=== PATIENT | female | born 1970 | race Caucasian/White ===

== ENCOUNTER 2022-05-16 08:32 | Outpatient (CLI) | payer BC ==
[2022-05-16] MEDS ORDERED: Magnevist 469MG/ML 20 ML VIAL ONE (09:27)
== END 2022-05-16 08:33 | disposition home or self-care (01) ==
LOC: TBSIIMAG 08:32
PROVIDERS: ATTEND Family Medicine
DX: R16.0 Hepatomegaly, not elsewhere classified (principal); K76.0 Fatty (change of) liver, not elsewhere classified; D18.03 Hemangioma of intra-abdominal structures; K80.20 Calculus of gallbladder without cholecystitis without obstruction
CPT/HCPCS: 74183

== ENCOUNTER 2024-02-24 09:42 | Outpatient (CLI) | payer BC | END 2024-02-24 09:43 | disposition home or self-care (01) | LOC: SCSRAD 09:42 | PROVIDERS: ATTEND Family Medicine | DX: M54.50 Low back pain, unspecified (principal); M47.816 Spondylosis without myelopathy or radiculopathy, lumbar region | CPT/HCPCS: 72100 ==